=== PATIENT | female | born 1985 | race Caucasian/White ===

== ENCOUNTER → 2019-08-03 14:44 | Outpatient (CLI) | payer OTHER, MEDICAID, SELFPAY ==
[2019-08-03 16:22] LABS: Add Manual Diff / Slide Review NO; Basophils Absolute Auto 0 /uL (0-100); Basophils Percent Auto 0.2 % (0-2); Eosinophils Absolute Auto 0 /uL (0-450); Eosinophils Percent Auto 0.6 % (2-4); Hematocrit 30.2 % (36-46); Hemoglobin 10.2 g/dL (12.0-16.0); Lymphocytes Absolute Auto 1400 /uL (1100-4500); Lymphocytes Percent Auto 18.2 % (25-40); Mean Corpuscular HGB Conc 33.9 % (30-36); Mean Corpuscular Hemoglobin 30.9 PG (26-34); Mean Corpuscular Volume 91.1 fL (80-100); Monocytes Absolute Auto 400 /uL (0-900); Monocytes Percent Auto 5.9 % (3-14); Neutrophils Absolute Auto 5600 /uL (1500-7000); Neutrophils Percent Auto 75.1 % (50-75); Platelet Count 217 X10^3/uL (150-400); Red Blood Cell Count 3.32 X10^6/uL (4.0-5.2); Red Cell Distribution Width 13.2 % (11.6-14.8); White Blood Cell Count 7.4 X10^3/uL (4.5-11.0)
[2019-08-03 17:11] LABS: Hepatitis B Surface Antigen NEGATIVE s/c (NEGATIVE)
[2019-08-03 17:15] LABS: Appearance Urine UA CLEAR; Bilirubin Urine UA NEGATIVE (NEGATIVE); Color Urine UA YELLOW; Glucose Urine UA NEGATIVE (Negative); Ketones Urine UA NEGATIVE (NEGATIVE); Leukocyte Esterase Urine UA NEGATIVE (NEGATIVE); Nitrite Urine UA NEGATIVE (Negative); Occult Blood Urine UA NEGATIVE (Negative); Protein Urine UA NEGATIVE (Negative); Specific Gravity Urine UA 1.015 (1.000-1.035); Urobilinogen Urine UA 0.2 E.U./dL (0.2)
[2019-08-03 17:16] LABS: UR Morphine/Opiate cutoff 300 Negative (Negative); Ur Creatinine Normal (Normal); Ur Specific Gravity Normal (Normal); Urine Amphetamines Negative (Negative); Urine Barbiturates Negative (Negative); Urine Benzodiazepines Negative (Negative); Urine Cocaine Negative (Negative); Urine MDMA Negative (Negative); Urine Methadone Negative (Negative); Urine Methamphetamines Negative (Negative); Urine Oxycodone Negative (Negative); Urine Phencyclidine Negative (Negative); Urine Tetrahydrocannabinol Negative (Negative); Urine Tricyclic Antidepressant Negative (Negative); Urine pH Normal (Normal); pH Urine UA 6.5 (4.5-8.0)
[2019-08-03 17:39] LABS: HIV 1 & 2 Ab/Ag 4th Gen Combo NEGATIVE (NEGATIVE); Hep C Virus Ab w/Reflex Quant REACTIVE s/c (NEGATIVE)
[2019-08-05 14:16] LABS: RPR Screen Nonreactive (Nonreactive)
== END ==
PROVIDERS: Family Provider Nurse Practitioner Family; PCP Nurse Practitioner Family
DX: B18.2 Chronic viral hepatitis C (principal); Z34.82 Encounter for supervision of other normal pregnancy, second trimester; O09.92 Supervision of high risk pregnancy, unspecified, second trimester
CPT/HCPCS: 36415; 80055; 80305; 80307; 81003; 86787; 86803; 86850; 86900; 86901; 87086; 87389; 87522

== ENCOUNTER 2023-06-03 23:16 | Emergency (ER) | payer OTHER, MEDICAID, SELFPAY ==
--- NOTE | 2023-06-03 23:19 | ED_ITS ---
HPI - General Adult General Chief complaint: Extremity Problem,Nontraumatic Stated complaint: possible blood clot rt leg Time Seen by Provider: 06/03/23 23:19 History of Present Illness HPI narrative: 37-year-old female smoker with history of opioid abuse and prior DVT presents with pain in her right calf. She denies any trauma or injury. She denies chest pain or shortness of breath. She states it feels like when she had a clot before. She had been on anticoagulants after having been diagnosed with a DVT a year ago, she stopped Eliquis about 1 month ago. She denies fever or chills. Related Data Allergies Allergy/AdvReac Type Severity Reaction Status Date / Time buprenorphine [From Suboxone] AdvReac Nausea Verified 06/03/23 23:25 naloxone [From Suboxone] AdvReac Nausea Verified 06/03/23 23:25 Review of Systems Review of Systems Narrative: GENERAL: Denies chills, fatigue, malaise, fever, sweats. HEENT: Denies sinus pain, ear pain, sore throat, difficulty swallowing, dizziness. RESPIRATORY: Denies dyspnea, cough, wheezing, hemoptysis, sputum. CARDIOVASCULAR: Denies chest pain, palpitations, orthopnea, edema, GASTROINTESTINAL: Denies nausea, vomiting, abdominal pain, diarrhea, constipation, melena. : Denies dysuria, frequency, incontinence, hematuria, urinary retention. MUSCULOSKELETAL: See HPI SKIN: Denies rash, skin lesions, or other NEUROLOGIC: Denies weakness, headache, numbness, change in speech, confusion, seizures, incoordination. PSYCHIATRIC: No concerning psychosocial issues. 12 point review of systems is negative except for those stated above Patient History Medical History (Updated 06/04/23 @ 00:19 by London Rincon DO) Drug ingestion Social History Smoking Status: Current some day smoker Exam Initial Vital Signs Initial Vital Signs: Vital Signs Temperature 97 F L 06/03/23 23:20 Pulse Rate 90 06/03/23 23:20 Respiratory Rate 16 06/03/23 23:20 Blood Pressure 114/59 L 06/03/23 23:20 Pulse Oximetry 97 06/03/23 23:20 Oxygen Delivery Method Room Air 06/03/23 23:20 Course Orders Ordered: ED Orders 06/03/23 23:31 periph venous low extrem rt Stat Vital Signs Vital signs: Vital Signs - 8 hr 06/03/23 23:20 06/04/23 00:24 06/04/23 00:27 Temperature 97 F L 97.2 F L Pulse Rate 90 82 Pulse Rate [Right Dorsalis Pedis] 78 Respiratory Rate 16 18 Blood Pressure 114/59 L 112/64 Pulse Oximetry 97 97 Oxygen Delivery Method Room Air Room Air Medical Decision Making MDM Narrative Medical decision making narrative: [37] year old patient presents with right calf pain Multiple etiologies for patient's symptoms considered including, but not limited to: [Duty versus cellulitis versus other] Primary Historian: patient Imaging reviewed: Ultrasound demonstrates no DVT Patient with reassuring history and physical exam, no swelling, erythema or warmth noted, patient has had history of DVT in his concerned about the recurrence, none noted on imaging. No erythema or warmth to suggest cellulitis. Patient encouraged to follow with her primary care provider Findings and discharge diagnosis discussed with patient/family followed by verbalization of understanding Return precautions discussed with patient/family whom verbalize understanding of diagnosis and plan Discharge Plan Departure Patient Disposition: Home Clinical Impression: Pain of right calf Instructions: DI for Leg Pain Activity Restrictions/Additional Instructions: *You have been diagnosed with [right calf pain. As we discussed your history and physical exam are reassuring and there is no evidence of clot on the ultrasound] *What to do: *Please continue to take your regular medications as directed. *Please follow up with your primary care provider in 2-3 days, call for an appointment. Let them know you were seen in the Emergency Department and that we ask that you be seen in follow up. We will electronically transmit a record of today's note if your PCP is in our system *If you do not have a primary care provider please contact the [facility] Resource line at [phone]. They will ask some questions about your medical history and help get you set up with a doctor in the community. *Return to Emergency Department if you should have any new, worsening or con cerning symptoms, such as [fever greater than 101 F, shaking chills, worsening pain, persistent vomiting or other bothersome symptoms] Referrals: Agustina Casas ARNP [Primary Care Provider] - Stand Alone Forms: Patient Portal/API
[2023-06-03 23:20] VITALS: BP 114/59; PULSE 90; RESP 16; TEMP 36.1; O2SAT 97; BMI 26.6
--- NOTE | 2023-06-03 23:31 | DI.US.S_ITS ---
PROCEDURE: US PERIPH VENOUS LOW EXTREM RT INDICATIONS: PAIN; HX of DVT TECHNIQUE: Real-time imaging, as well as color and pulse Doppler interrogation, were performed of the lower extremity deep veins from the inguinal ligament to the popliteal fossa, with documentation of the visualized calf veins. COMPARISON: None. FINDINGS: The common femoral, femoral, popliteal, and the visualized calf veins are normally compressible, and free of intraluminal thrombus. Color and pulse Doppler demonstrate normal phasic intraluminal flow. There is normal augmentation response to distal compression maneuver. IMPRESSION: 1. No evidence of deep venous thrombosis in the right lower extremity. Dictated by: Dinesh Romero M.D. on 06/04/2023 at 1:42 Approved by: Dinesh Romero M.D. on 06/04/2023 at 1:42
[2023-06-04 00:24] VITALS: PULSE 78
[2023-06-04 00:27] VITALS: BP 112/64; PULSE 82; RESP 18; TEMP 36.2; O2SAT 97
== END 2023-06-04 00:28 | disposition home or self-care (01) ==
PROVIDERS: Emergency Provider Emergency Medicine; Family Provider Nurse Practitioner Family; PCP Nurse Practitioner Family
DX: M79.604 Pain in right leg (principal)
CPT/HCPCS: 93971; 99281; 99283

== ENCOUNTER 2023-06-05 01:25 | Emergency (ER) | payer OTHER, MEDICAID, SELFPAY ==
[2023-06-05 01:28] VITALS: BP 123/70; PULSE 102; O2SAT 92
[2023-06-05 01:30] VITALS: BP 121/58; BP 123/70; PULSE 101; PULSE 98; RESP 18; TEMP 37.6; O2SAT 92; BMI 26.6
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
[2023-06-05 02:08] VITALS: TEMP 37.1
[2023-06-05 02:09] VITALS: PULSE 97; RESP 20; O2SAT 97
== END 2023-06-05 02:22 | disposition home or self-care (01) ==
PROVIDERS: Emergency Provider Emergency Medicine; Family Provider Nurse Practitioner Family; PCP Nurse Practitioner Family
DX: M79.604 Pain in right leg (principal)
CPT/HCPCS: 99281; 99282